=== PATIENT | female | born 1980 | race Caucasian/White ===

== ENCOUNTER → 2017-01-09 | Outpatient (CLI) | payer BC ==
[2017-01-09 11:04] LABS: CH 30.2; CHCM 34.1; HCT 39.1 % (34.0-46.0); HDW 2.53; HGB 13.4 gm/dL (11.4-16.0); MCH 30.5 pg (25.0-35.0); MCHC 34.3 g/dL (31.0-37.0); MCV 88.9 fL (80.0-100.0); Mean Platelet Volume 7.9
[2017-01-09 12:00] LABS: Hepatitis B Surface Ag Index 0.07
[2017-01-09 12:20] LABS: Hemoglobin A1C 5.5 % (4.2-6.1)
[2017-01-10 07:51] LABS: HIV-1/HIV-2 Ab Screen NONREAC (NON REAC)
[2017-01-13 05:43] LABS: Parvovirus B-19 IgG Antibodies 3.6 INDEX (<0.9); Parvovirus B-19 IgM Antibodies 0.2 INDEX (<0.9)
== END ==
LOC: LABWHC1 09:34
PROVIDERS: ATTEND Obstetrics & Gynecology
DX: Z34.90 Encounter for supervision of normal pregnancy, unspecified, unspecified trimester (principal); Z3A.00 Weeks of gestation of pregnancy not specified
CPT/HCPCS: 36415; 82950; 83036; 85027; 86747; 86762; 86780; 86850; 86900; 86901; 87086; 87340; 87389

== ENCOUNTER 2017-02-06 21:42 | Emergency (ER) | payer BC, OTHER ==
[2017-02-06 21:48] VITALS: RESP 18
--- NOTE | 2017-02-06 22:24 | ED ---
Female Urogenital HPI - General Chief complaint: Vaginal Bleeding Stated complaint: Vag bleeding-15 wk preg Time Seen by Provider: 02/06/17 22:04 Source: patient, family, RN notes reviewed, old records reviewed Mode of arrival: ambulatory Limitations: no limitations - History of Present Illness Initial comments: This is a 36-year-old female presenting to the emergency department with chief complaint of vaginal bleeding. Patient is currently 15 weeks . She reports that she saw Dr. Vigil yesterday and had heart tones and everything was fine. She states that she was doing a lot of heavy lifting today at her school was going up and down from sitting on the floor. She is a autism teacher. She reports that this is her fourth . She reports that she does have some cramping pelvic pain that comes and goes. She states that she does not have any clots passed but there was blood whenever she urinated. She states that she has no abdominal pain, nausea or vomiting. - Related Data Home Medications Medication Instructions Recorded Confirmed Cetirizine HCl [Zyrtec] 10 mg PO DAILY 02/06/17 02/06/17 Rgh-Ywla-Duume Acid 1 cap PO DAILY 02/06/17 02/06/17 [-U Capsule (formulary)] Allergies Allergy/AdvReac Type Severity Reaction Status Date / Time amoxicillin Allergy Rash/Hives Verified 02/06/17 22:35 cephalexin [From Keflex] Allergy Rash/Hives Verified 02/06/17 22:35 erythromycin base Allergy Rash/Hives Verified 02/06/17 22:35 insulin lispro [From Humalog] Allergy Rash/Hives Verified 02/06/17 22:35 levofloxacin [From Levaquin] Allergy Rash/Hives Verified 02/06/17 22:35 terbinafine [From Lamisil] Allergy Rash/Hives Verified 02/06/17 22:35 Review of Systems ROS Statement: Those systems with pertinent positive or pertinent negative responses have been documented in the HPI. ROS Other: All systems not noted in ROS Statement are negative. Past Medical History Past Medical History: No Reported History History of Any Multi-Drug Resistant Organisms: None Reported Past Surgical History: Cholecystectomy, Orthopedic Surgery Past Psychological History: No Psychological Hx Reported Smoking Status: Never smoker Past Alcohol Use History: None Reported Past Drug Use History: None Reported General Exam - General Exam Comments Initial Comments: This is a 36-year-old female presenting to emergency Department chief complaint of vaginal bleeding. Patient does not appear to be in any acute distress. Limitations: no limitations General appearance: alert, in no apparent distress Head exam: Present: atraumatic, normocephalic, normal inspection Eye exam: Present: normal appearance, PERRL, EOMI. Absent: scleral icterus, conjunctival injection, periorbital swelling ENT exam: Present: normal exam, mucous membranes moist Neck exam: Present: normal inspection. Absent: tenderness, meningismus, lymphadenopathy Respiratory exam: Present: normal lung sounds bilaterally. Absent: respiratory distress, wheezes, rales, rhonchi, stridor Cardiovascular Exam: Present: regular rate, normal rhythm, normal heart sounds. Absent: systolic murmur, diastolic murmur, rubs, gallop, clicks GI/Abdominal exam: Present: soft, normal bowel sounds. Absent: distended, tenderness, guarding, rebound, rigid External exam: Present: normal external exam Speculum exam: Present: cervical discharge, vaginal bleeding, other (Cervix appears to be somewhat dilated between 1 and 2 cm.). Absent: normal speculum exam Extremities exam: Present: normal inspection, full ROM, normal capillary refill. Absent: tenderness, pedal edema, joint swelling, calf tenderness Back exam: Present: normal inspection Neurological exam: Present: alert, oriented X3, CN II-XII intact Psychiatric exam: Present: normal affect, normal mood Skin exam: Present: warm, dry, intact, normal color. Absent: rash Course Vital Signs 02/06/17 02/07/17 21:43 00:55 Temperature 97.7 F 98.6 F Pulse Rate 82 83 Respiratory 18 18 Rate Blood Pressure 137/67 117/64 O2 Sat by Pulse 100 97 Oximetry Medical Decision Making - Medical Decision Making This is a 36-year-old female presents emergency Department with chief complaint of vaginal bleeding for one day. Patient reports is her fourth . She does follow up with Dr. Davila. She was that she is approximately 15-16 weeks. Patient received blood work recently, blood type is A positive. Patient Hcg serum quant is 46,000. Patient given transvaginal ultrasound. Ultrasound shows single IUP measuring 16 weeks. Cervix measures 3.5 cm which is closed. On pelvic exam there was a significant amount of dark blood. No evidence of clotting. The cervix appeared to be somewhat open between 1-2 cm. Difficult to totally visualize the cervix at this time blood. Discussed the findings with the patient. Discussed that this could likely be in and an inevitable miscarriage. Discussed close follow-up with Dr. Vigil and Giovanni. Discussed the case with Dr. Sanford. He states there is nothing more that we could do to intervene at this point. Patient will repeat her blood work in 2 days. Patient was advised to be at bedrest and to return if there are any worsening signs or symptoms. Patient agrees with treatment plan will comply. Return parameters were discussed. - Lab Data Result diagrams: 02/06/17 22:30 02/06/17 22:30 Lab Results 02/06/17 02/06/17 02/06/17 Range/Units 22:30 22:30 22:30 WBC 9.7 (3.8-10.6) k/uL RBC 4.06 (3.80-5.40) m/uL Hgb 12.1 (11.4-16.0) gm/dL Hct 35.6 (34.0-46.0) % MCV 87.7 (80.0-100.0) fL MCH 29.9 (25.0-35.0) pg MCHC 34.0 (31.0-37.0) g/dL RDW 13.7 (11.5-15.5) % Plt Count 152 (150-450) k/uL Neutrophils % 69 % Lymphocytes % 22 % Monocytes % 5 % Eosinophils % 1 % Basophils % 0 % Neutrophils # 6.7 (1.3-7.7) k/uL Lymphocytes # 2.2 (1.0-4.8) k/uL Monocytes # 0.5 (0-1.0) k/uL Eosinophils # 0.1 (0-0.7) k/uL Basophils # 0.0 (0-0.2) k/uL Sodium 136 L (137-145) mmol/L Potassium 3.3 L (3.5-5.1) mmol/L Chloride 105 (98-107) mmol/L Carbon Dioxide 22 (22-30) mmol/L Anion Gap 9 mmol/L BUN 7 (7-17) mg/dL Creatinine 0.46 L (0.52-1.04) mg/dL Est GFR (MDRD) Af Amer >60 (>60 ml/min/1.73 sqM) Est GFR (MDRD) Non-Af >60 (>60 ml/min/1.73 sqM) Glucose 113 H (74-99) mg/dL Calcium 9.5 (8.4-10.2) mg/dL HCG, Qual Detected HCG, Quant 25394.3 mIU/mL - Radiology Data Radiology results: report reviewed Single IUP of 16 weeks and 1 day. Posterior marginal placenta. Focal myometrial contraction cervix seen on initial imaging. Cervix measures 3.5 cm in length and is closed. IP hurrying of 136 bpm. Disposition Clinical Impression: Threatened miscarriage Disposition: HOME SELF-CARE Condition: Good Instructions: Threatened Miscarriage (ED) Additional Instructions: Patient advised to follow up with your [facility] on Thursday. Patient needs to rest. Patient needs to repeat her lab work in 2 days. Return to the emergency department if any alarming signs or symptoms occur. Referrals: Carmita Monge MD [Primary Care Provider] - 1-2 days Time of Disposition: 00:41
[2017-02-06 22:35] LABS: Basophils % (A) 0 %; CH 30.6; CHCM 35.1; Eosinophils # (A) 0.1 k/uL (0-0.7); Eosinophils % (A) 1 %; HCT 35.6 % (34.0-46.0); HDW 2.66; HGB 12.1 gm/dL (11.4-16.0); Luc # (Auto) 0.17; Luc % (Auto) 2; Lymphocytes # (A) 2.2 k/uL (1.0-4.8); Lymphocytes % (A) 22 %; MCH 29.9 pg (25.0-35.0); MCV 87.7 fL (80.0-100.0); Mean Platelet Volume 8.9; Monocytes # (A) 0.5 k/uL (0-1.0); Monocytes % (A) 5 %; Neutrophils # (A) 6.7 k/uL (1.3-7.7); Neutrophils % (A) 69 %; RBC 4.06 m/uL (3.80-5.40); RDW 13.7 % (11.5-15.5); WBC 9.7 k/uL (3.8-10.6); WBC (Perox) 9.56
[2017-02-06 22:44] LABS: HCG,Qualitative Serum Detected
[2017-02-06 22:45] LABS: Anion Gap 9 mmol/L; Blood Urea Nitrogen 7 mg/dL (7-17); Calcium 9.5 mg/dL (8.4-10.2); Carbon Dioxide 22 mmol/L (22-30); Chloride 105 mmol/L (98-107); Glucose 113 mg/dL (74-99); Non-African American GFR(MDRD) >60 (>60 ml/min/1.73 sqM); Potassium 3.3 mmol/L (3.5-5.1); Sodium 136 mmol/L (137-145)
--- NOTE | 2017-02-06 23:25 | US ---
EXAM: US After First Trimester, Transabdominal CLINICAL HISTORY: Reason: Pain TECHNIQUE: Real-time transabdominal obstetrical ultrasound of the maternal pelvis and a second or third trimester with image documentation. COMPARISON: No relevant prior studies available. FINDINGS: Fetus: Taver[place]. Heart rate: 136 bpm Presentation: Variable lie. Placenta: Posterior and marginal. No abruption. Amniotic fluid: RED 13.3 cm Anatomy: Intracranial/face anatomy not seen. Spinal anatomy not seen. Abdominal anatomy not seen. Extremities not seen. Four-chamber heart not seen. Umbilical cord not seen. BIOMETRICS Gestational age by US: 16 weeks 1 day. EFW: 138 grams BPD: 3.2 cm corresponding to 16 weeks / 1 days HC: 11.9 cm corresponding to 16 weeks / 0 days AC: 10.0 cm corresponding to 16 weeks / 0 days FL: 1.9 cm corresponding to 15 weeks / 5 days MATERNAL: Uterus: Focal myometrial contraction near the cervix seen on initial imaging. No myometrial mass. Cervix: 3.5 cm in length and closed. Free fluid: No free fluid. IMPRESSION: Single IUP of 16 weeks and 1 day. Posterior marginal placenta. Focal myometrial contraction near the cervix seen on initial imaging.
[2017-02-07 00:56] VITALS: BP 117/64; PULSE 83; TEMP 98.6
== END 2017-02-07 00:56 | disposition home or self-care (01) ==
LOC: EC 21:42
DX: O20.0 Threatened abortion (principal); Z3A.16 16 weeks gestation of pregnancy; Z79.899 Other long term (current) drug therapy; Z88.0 Allergy status to penicillin; Z88.1 Allergy status to other antibiotic agents; Z88.8 Allergy status to other drugs, medicaments and biological substances
CPT/HCPCS: 36415; 76805; 80048; 84702; 84703; 85025; 99284

== ENCOUNTER → 2017-04-22 | Outpatient (CLI) | payer OTHER | END | disposition home or self-care (01) | LOC: LABWHC1 07:46 | PROVIDERS: ATTEND Obstetrics & Gynecology | DX: Z34.90 Encounter for supervision of normal pregnancy, unspecified, unspecified trimester (principal); Z3A.00 Weeks of gestation of pregnancy not specified | CPT/HCPCS: 36415; 82950 ==

== ENCOUNTER 2017-07-06 16:30 | Outpatient (CLI) | payer OTHER ==
[2017-07-06 17:21] LABS: Glucose,Whole Blood 90 mg/dL (75-99)
[2017-07-06 17:25] VITALS: BP 126/78; PULSE 88; RESP 16; TEMP 98.1
--- NOTE | 2017-07-25 12:03 | P.MSEPDOC ---
Presenting Problems - Arrival Data Date of Arrival on Unit: 07/06/17 Time of Arrival on Unit: 16:30 Mode of Transport: Ambulatory - Complaint OB-Reason for Admission/Chief Complaint: Rule Out PROM Comment: clear fluid, leaking since 07/05/2017 Medical History - Information : 4 Para: 3 Term: 2 : 1 Abortions: Spontaneous or Elective: 0 Number of Living Children: 3 - Gestational Age Gestational Age by BLAKE (wks/days): 36 Weeks and 5 Days - History Complications: GDM Comment: GDM; insulin controlled; cbg 90 in triage Review of Systems - Review of Systems Constitutional: No problems Breast: No problems ENT: No problems Cardiovascular: No problems Respiratory: No problems Gastrointestinal: No problems Genitourinary: No problems Musculoskeletal: No problems Neurological: No problems Skin: No problems Vital Signs - Temperature Temperature: 98.1 F Temperature Source: Temporal Artery Scan - Pulse Right Sitting Brachial Pulse Rate: 88 Pulse Assessment Method: Automatic Cuff - Respirations Respiratory Rate: 16 Oxygen Delivery Method: Room Air O2 Sat by Pulse Oximetry: 100 - Blood Pressure Right Arm Sitting Blood Pressure: 126/78 Blood Pressure Mean: 94 Blood Pressure Source: Automatic Cuff Medical Screen Scoring (Pre) - Cervical Exam Dilation: 1-3 cm = 1 Effacement: More than 50% = 2 Membranes: Intact - Uterine Contractions Frequency: N/A Duration: N/A Intensity: N/A - Maternal Vital Signs Maternal Temperature: N/A Maternal Blood Pressure: N/A Signs of Preeclampsia: N/A Maternal Respirations: N/A - Maternal Trauma Maternal Trauma: N/A - Assessment Baseline FHR: 130 Heart Rate - NICHD Category: Category I (Normal) = 0 NST: Reactive Position: N/A Station: N/A - Total Score Total Score (Pre): 3 - Level of Risk Level of Risk: Low (0-5) Physician Notification (Pre) - Physician Notified Physician Notified Date: 07/06/17 Physician Notified Time: 17:15 Physician/Practitioner Notifed:: Ephraim Spoke With: Ephraim New Order Received: Yes - Notification Comment Comment: Negative amnisure; D/C home c\instructions; follow up at appt Thursday Disposition - Disposition OB Disposition: Discharge to home Discharge Date: 07/06/17 Discharge Time: 17:25 I agree with the RN Medical Screening Exam: Yes Risk & Benefit of care provided described in d/c instruction: Yes Diagnosis: FULL-TERM ANTHONY ROM, ONSET LABOR WITHIN 24 HOURS OF RUPTURE
== END 2017-07-06 17:25 | disposition home or self-care (01) ==
LOC: FBPOP 16:30
PROVIDERS: ATTEND Obstetrics & Gynecology Obstetrics
DX: O42.10 Premature rupture of membranes, onset of labor more than 24 hours following rupture, unspecified weeks of gestation (principal); Z3A.36 36 weeks gestation of pregnancy
CPT/HCPCS: 59025; 99213

== ENCOUNTER 2018-09-18 11:30 | Emergency (ER) | payer OTHER ==
[2018-09-18 11:37] VITALS: RESP 24; TEMP 97.6
--- NOTE | 2018-09-18 11:56 | ED ---
General Adult HPI - General Chief complaint: Anxiety Stated complaint: Anxiety, Depression Time Seen by Provider: 09/18/18 11:41 Source: patient, RN notes reviewed, old records reviewed Mode of arrival: ambulatory Limitations: no limitations - History of Present Illness Initial comments: 38-year-old female presents for evaluation of anxiety, depression, hopelessness. Patient admits to near the daily alcohol consumption. She has been dealing with symptoms for the past several months. She is not on any medicine currently. Patient denies suicide attempt, denies suicidal ideation although she does feel like she "wants a break". Patient denies significant medical history. No mental health history. - Related Data Home Medications Medication Instructions Recorded Confirmed Fluticasone Nasal [place] [Flonase 1 spr EA NOSTRIL DAILY PRN 09/18/18 09/18/18 Nasal [place]] Ibuprofen [Motrin Ib] 400 mg PO Q6H PRN 09/18/18 09/18/18 Nasal [place] Otc 2 spr EA NOSTRIL DAILY PRN 09/18/18 09/18/18 Previous Rx's Medication Instructions Recorded Diazepam [Valium] 5 mg PO TID PRN 3 Days #9 tab 09/18/18 Allergies Allergy/AdvReac Type Severity Reaction Status Date / Time amoxicillin Allergy Rash/Hives Verified 09/18/18 12:00 cephalexin [From Keflex] Allergy Rash/Hives Verified 09/18/18 12:00 erythromycin base Allergy Rash/Hives Verified 09/18/18 12:00 insulin lispro [From Humalog] Allergy Rash/Hives Verified 09/18/18 12:00 levofloxacin [From Levaquin] Allergy Rash/Hives Verified 09/18/18 12:00 terbinafine [From Lamisil] Allergy Rash/Hives Verified 09/18/18 12:00 Review of Systems ROS Statement: Those systems with pertinent positive or pertinent negative responses have been documented in the HPI. ROS Other: All systems not noted in ROS Statement are negative. Past Medical History Past Medical History: No Reported History, Asthma History of Any Multi-Drug Resistant Organisms: None Reported Past Surgical History: Cholecystectomy, Orthopedic Surgery Past Anesthesia/Blood Transfusion Reactions: No Reported Reaction Past Psychological History: Anxiety, Depression Smoking Status: Current every day smoker Past Alcohol Use History: Daily Past Drug Use History: None Reported - Past Family History Father Family Medical History: No Reported History General Exam Limitations: no limitations General appearance: alert, in no apparent distress, anxious Head exam: Present: atraumatic, normocephalic Eye exam: Present: normal appearance. Absent: PERRL, EOMI ENT exam: Present: normal exam Neck exam: Present: normal inspection. Absent: tenderness, meningismus Respiratory exam: Present: normal lung sounds bilaterally. Absent: respiratory distress, wheezes Cardiovascular Exam: Present: normal rhythm, tachycardia GI/Abdominal exam: Present: soft. Absent: distended, tenderness, guarding Extremities exam: Present: normal inspection, normal capillary refill. Absent: pedal edema Neurological exam: Present: alert, oriented X3, CN II-XII intact. Absent: motor sensory deficit Psychiatric exam: Present: depressed, anxious. Absent: suicidal ideation Skin exam: Present: warm, dry, intact. Absent: cyanosis, diaphoretic Course Vital Signs 09/18/18 11:33 Temperature 97.6 F Pulse Rate 132 H Respiratory 24 Rate Blood Pressure 166/107 O2 Sat by Pulse 98 Oximetry - Reevaluation(s) Reevaluation #1: 09/18/18 17:03 Patient's care signed out to Dr. Friedman at shift change. Medical Decision Making - Medical Decision Making 38-year-old female presenting for anxiety, depression, and alcohol abuse. Patient is medically cleared emergency department, she was evaluated for mental health. She is cleared by EPS for outpatient follow-up. She is given counseling and outpatient referral. Patient is concerned she may have withdrawal symptoms that she has been drinking daily. She is given a short course of Valium for concern of alcohol withdrawal. She will be discharged home. - Lab Data Lab Results 09/18/18 Range/Units 13:02 Urine Opiates Screen Not Detected (NotDetected) Ur Oxycodone Screen Not Detected (NotDetected) Urine Methadone Screen Not Detected (NotDetected) Ur Propoxyphene Screen Not Detected (NotDetected) Ur Barbiturates Screen Not Detected (NotDetected) U Tricyclic Antidepress Not Detected (NotDetected) Ur Phencyclidine Scrn Not Detected (NotDetected) Ur Amphetamines Screen Not Detected (NotDetected) U Methamphetamines Scrn Not Detected (NotDetected) U Benzodiazepines Scrn Not Detected (NotDetected) Urine Cocaine Screen Not Detected (NotDetected) U Marijuana (THC) Screen Not Detected (NotDetected) Disposition Clinical Impression: Acute anxiety, Depression Disposition: HOME SELF-CARE Instructions: Anxiety (ED), Abuse of Alcohol (ED) Prescriptions: Diazepam [Valium] 5 mg PO TID PRN 3 Days #9 tab PRN Reason: Anxiety Is patient prescribed a controlled substance at d/c from ED?: No Referrals: Didier Estevez MD [Primary Care Provider] - 1-2 days Time of Disposition: 17:26
[2018-09-18 13:30] LABS: Amphetamine Screen,Urine Not Detected (NotDetected); Barbiturate Screen,Urine Not Detected (NotDetected); Benzodiazepines Screen,Urine Not Detected (NotDetected); Cocaine Screen,Urine Not Detected (NotDetected); Methadone Screen, Urine Not Detected (NotDetected); Opiate Screen,Urine Not Detected (NotDetected); Oxycodone Screen, Urine Not Detected (NotDetected); Phencyclidine Screen,Urine Not Detected (NotDetected); Tricyclic Antidepressant,Urine Not Detected (NotDetected); Urn Cannabinoid Scrn Not Detected (NotDetected)
[2018-09-18 18:00] VITALS: BP 150/94; PULSE 97
== END 2018-09-18 17:58 | disposition home or self-care (01) ==
LOC: EC 11:30
DX: F41.9 Anxiety disorder, unspecified (principal); F32.9 Major depressive disorder, single episode, unspecified; F10.10 Alcohol abuse, uncomplicated; F17.200 Nicotine dependence, unspecified, uncomplicated; Z88.0 Allergy status to penicillin; Z88.1 Allergy status to other antibiotic agents; Z88.8 Allergy status to other drugs, medicaments and biological substances
CPT/HCPCS: 80306; 82075; 99284

== ENCOUNTER → 2019-05-04 | Outpatient (CLI) | payer BC ==
--- NOTE | 2019-05-04 11:18 | MM ---
Reason for exam: screening (asymptomatic). Baseline mammogram. History: Family history of breast cancer in maternal grandmother at age 86 and breast cancer in maternal aunt at age 40. Physical Findings: Nurse did not find any significant physical abnormalities on exam. MG 3D Screening Mammo W/Cad Bilateral CC and MLO view(s) were taken. The breast tissue is heterogeneously dense. This may lower the sensitivity of mammography. No suspicious abnormality. These results were verbally communicated with the patient and result sheet given to the patient on 05/04/19. ASSESSMENT: Negative, BI-RAD 1 RECOMMENDATION: Routine screening mammogram of both breasts in 1 year.
== END | disposition home or self-care (01) ==
LOC: RADMAMWWP 10:15
PROVIDERS: ATTEND Obstetrics & Gynecology
DX: Z12.31 Encounter for screening mammogram for malignant neoplasm of breast (principal); Z80.3 Family history of malignant neoplasm of breast
CPT/HCPCS: 77063; 77067

== ENCOUNTER → 2019-10-14 | Outpatient (CLI) | payer BC ==
[2019-10-19 12:39] LABS: Beef IgG 8.8 mcg/mL (< 2.0)
[2019-10-19 12:40] LABS: Chicken Meat IgG 2.8 mcg/mL (< 2.0)
[2019-10-21 12:08] LABS: Corn IgG 5.7 mcg/mL (< 2.0); Cow's Milk IgG 39.8 mcg/mL (< 2.0); Peanut IgG <2.0 mcg/mL (< 2.0); Potato IgG 2.7 mcg/mL (< 2.0); Soybean IgG 2.1 mcg/mL (< 2.0); Tomato IgG 2.8 mcg/mL (< 2.0); Wheat IgG 7.1 mcg/mL (< 2.0)
== END | disposition home or self-care (01) ==
LOC: LABWHC1 09:54
PROVIDERS: ATTEND Otolaryngology
DX: J30.89 Other allergic rhinitis (principal)
CPT/HCPCS: 36415; 86001

== ENCOUNTER → 2021-04-09 | Outpatient (CLI) | payer BC ==
[2021-04-09 12:13] LABS: African American GFR (CKD) >90 (>60 ml/min/1.73 sqM); Anion Gap 8 mmol/L; Blood Urea Nitrogen 15 mg/dL (7-17); Carbon Dioxide 23 mmol/L (22-30); Chloride 107 mmol/L (98-107); Glucose 96 mg/dL (74-99); Magnesium 2.1 mg/dL (1.6-2.3); Non-African American GFR(CKD) >90 (>60 ml/min/1.73 sqM); Potassium 4.1 mmol/L (3.5-5.1); Sodium 138 mmol/L (137-145)
[2021-04-09 12:17] LABS: Basophils % (A) 0 %; Eosinophils # (A) 0.2 k/uL (0-0.7); Eosinophils % (A) 2 %; HCT 38.7 % (34.0-46.0); HGB 13.3 gm/dL (11.4-16.0); Lymphocytes # (A) 2.4 k/uL (1.0-4.8); Lymphocytes % (A) 28 %; MCHC 34.2 g/dL (31.0-37.0); MCV 87.6 fL (80.0-100.0); Monocytes # (A) 0.5 k/uL (0-1.0); Monocytes % (A) 6 %; Neutrophils # (A) 5.4 k/uL (1.3-7.7); Neutrophils % (A) 63 %; Platelet Count 167 k/uL (150-450); RBC 4.42 m/uL (3.80-5.40); RDW 14.4 % (11.5-15.5); WBC 8.6 k/uL (3.8-10.6)
== END | disposition home or self-care (01) ==
LOC: LABPAT 11:14
PROVIDERS: ATTEND Obstetrics & Gynecology
DX: Z01.812 Encounter for preprocedural laboratory examination (principal); N81.4 Uterovaginal prolapse, unspecified; N81.6 Rectocele
CPT/HCPCS: 36415; 80051; 82565; 82947; 83735; 84520; 85025; 87086

== ENCOUNTER 2021-04-18 05:47 | Day surgery (SDC) | payer BC, OTHER ==
--- NOTE | 2021-04-11 18:05 | P.GSHP ---
History of Present Illness H&P Date: 04/11/21 Chief Complaint: Mixed urinary incontinence The patient is a 41-year-old white female with mixed urinary incontinence, which requires the locational use of pads. She has scheduled to undergo a TVH with AP repair for pelvic prolapse. She has been advised that the stress component of her incontinence may worsen following this procedure. Examination shows evidence of urethral hypermobility, and she will undergo a TOT sling at the time of her TVH with AP repair. - Genitourinary (Female) Genitourinary: Reports as per HPI Past Medical History Past Medical History: No Reported History, Asthma History of Any Multi-Drug Resistant Organisms: None Reported Past Surgical History: Cholecystectomy, Orthopedic Surgery Past Anesthesia/Blood Transfusion Reactions: No Reported Reaction Past Psychological History: Anxiety, Depression Past Alcohol Use History: Daily Past Drug Use History: None Reported - Past Family History Father Family Medical History: No Reported History Medications and Allergies Home Medications Medication Instructions Recorded Confirmed Type Diazepam [Valium] 5 mg PO TID PRN 3 Days #9 tab 09/18/18 Rx Fluticasone Nasal [place] [Flonase 1 spr EA NOSTRIL DAILY PRN 09/18/18 09/18/18 History Nasal [place]] Ibuprofen [Motrin Ib] 400 mg PO Q6H PRN 09/18/18 09/18/18 History Nasal [place] Otc 2 spr EA NOSTRIL DAILY PRN 09/18/18 09/18/18 History Allergies Allergy/AdvReac Type Severity Reaction Status Date / Time amoxicillin Allergy Rash/Hives Verified 09/18/18 12:00 cephalexin [From Keflex] Allergy Rash/Hives Verified 09/18/18 12:00 erythromycin base Allergy Rash/Hives Verified 09/18/18 12:00 insulin lispro [From Humalog] Allergy Rash/Hives Verified 09/18/18 12:00 levofloxacin [From Levaquin] Allergy Rash/Hives Verified 09/18/18 12:00 terbinafine [From Lamisil] Allergy Rash/Hives Verified 09/18/18 12:00 Surgical - Exam - General well developed, well nourished, no distress - Neck no masses, trachea midline - Abdomen Abdomen: soft, non tender, no guarding, no rigid, no rebound - Genitourinary Normal vulva, normal urethral meatus. There is evidence of urethral hypermobility. Stress incontinence is not demonstrated. Grade 3 cystocele, grade 2 rectocele. - Psychiatric oriented to time, oriented to person, oriented to place, speech is normal, memory intact Assessment and Plan (1) Mixed urinary incontinence due to female genital prolapse Status: Acute Code(s): N39.46 - MIXED INCONTINENCE; N81.9 - FEMALE GENITAL PROLAPSE, UNSPECIFIED SNOMED Code(s): 880844334 Plan: I had a lengthy discussion with the patient regarding her urinary incontinence. I explained to her that the incontinence may worsen following a TVH with AP repair. Alternative surgical treatment options were reviewed in detail. These include autologous fascial sling, suprapubic synthetic sling, and TOT synthetic sling. The pros, cons, and risks of each approach were reviewed. The controversy regarding the use of synthetic slings was discussed in detail. She will undergo placement of an Obtryx sling at the time of her TVH with AP repair. She understands risks associated with this to include anesthesia, bleeding, infection, lower urinary tract injury, persistent incontinence, increased urge incontinence, and urinary retention which may require a secondary procedure.
[2021-04-12 10:17] VITALS: BMI 28.3
--- NOTE | 2021-04-15 17:02 | HP ---
HISTORY AND PHYSICAL REASON FOR ADMISSION: Surgery on March. HISTORY OF PRESENT ILLNESS: This is a 41-year-old female who presents for vaginal hysterectomy. Her most recent Pap smear revealed high-grade squamous intraepithelial lesion, confirmed on colposcopic biopsies. The patient had a tubal ligation. She complains of an increasing perineal bulge and prolapse of the perineal body. In addition, she has urinary leakage with almost all daily activities, having to splint the perineum for complete evacuation of the rectum as well. The patient has pain with deep penetration at the time of intimacy and feels that tampons actually bend or become misshapen and spin in the vagina. She is scheduled for vaginal hysterectomy under my care, with comanagement with Dr. Chamorro. PAST MEDICAL HISTORY: Significant for allergy induced asthma, history of gestational diabetes, history of abnormal Pap smears in the past. PAST SURGICAL HISTORY: Cholecystectomy, colposcopy, foot surgery on the right foot in 1993 in 1994, tubal occlusion with [place] clips, and wisdom teeth extracted. CURRENT MEDICATIONS: Multivitamin daily, vitamin D 5000 international units daily, Zyrtec-D p.r.n. ALLERGIES: Include AMOXICILLIN, ERYTHROMYCIN, HUMALOG, KEFLEX, LAMISIL, LEVAQUIN to all of which patient reports hives. She also discusses seasonal allergies. FAMILY HISTORY: Significant for senile dementia, heart disease, insulin-dependent diabetes, breast cancer. REPRODUCTIVE HISTORY: Significant for normal spontaneous vaginal delivery in 2005, 2008, 2013, and 2017. All healthy newborns. SOCIAL HISTORY: The patient works for the [employer] as a teacher, she has had intermittent tobacco smoking in the past, quitting with pregnancies. She is , denies alcohol or drug use. REVIEW OF SYSTEMS: Otherwise negative. PHYSICAL EXAMINATION: On examination, patient is 5 foot 2-1/2 inches, 157 pounds, blood pressure 128/90 seated. HEENT exam reveals no thyromegaly, no cervical lymphadenopathy. CHEST: Clear to auscultation in all stoner anteriorly and posteriorly. BREAST exam reveals breasts to be bilaterally symmetric to inspection with no skin dimpling, nipple discharge, axillary adenopathy. ABDOMEN: Soft and nontender, no organosplenomegaly, no CVA tenderness. EXTREMITIES reveal no edema. On PELVIC EXAM, there is a grade 2-3 cystocele, grade 2-3 rectocele, and grade 2-3 uterine prolapse. Adnexa are negative to palpation bilaterally. There is good sphincter tone, FIT negative stool. No rash is present on the skin exam, no areas of discoloration. NEUROLOGIC: The patient is oriented and intact, with good judgment. Normal mood and appropriate affect. IMPRESSION: Increasingly symptomatic cystocele, rectocele, uterine prolapse. Dr. Chamorro' assessment is of mixed urinary incontinence. PLAN: We will proceed with vaginal hysterectomy, anterior and posterior colporrhaphy. Dr. Chamorro will perform a sling procedure at the same time. Cystoscopy will be done after completion of all surgery. Patient is aware of the risks, benefits, and alternatives to this plan. All questions have been answered. We have discussed the risk of bleeding, infection, perforation or damage to bowel, bladder, ureters, or indeed any pelvic or abdominal organs. She understands the unlikely but possible occurrence of dyspareunia postoperatively as well. All questions answered. MMODL / IJN: [id number] /
[~2021-04-18 05:47] MED LIST: CLINDAMYCIN 900 MG in DEXTROSE 5% IN WATER 50 ML IVPB PRN; DEXAMETHASONE SOD PHOSPHATE 4 MG/ML 1 ML VIAL IV ONE; ONDANSETRON 4 MG/2 ML VIAL IVP ONE
[2021-04-18] MEDS ORDERED: ONDANSETRON 4 MG/2 ML VIAL ONE ×2 (06:19→07:35)
[2021-04-18] MEDS ORDERED: LACTATED RINGERS 1,000 ML IV ONE ×4 (06:20→11:09)
[2021-04-18] MEDS ORDERED: HYDROmorphone 0.5 MG/0.5 ML SYRINGE IVP PRN (07:00)
[2021-04-18] MEDS ORDERED: MIDAZOLAM 2 MG/2 ML VIAL IVP ONE (07:16)
[2021-04-18] MEDS ORDERED: DEXAMETHASONE SOD PHOSPHATE 10 MG/ML 1 ML VIAL ONE (07:35)
[2021-04-18] MEDS ORDERED: MIDAZOLAM 2 MG/2 ML VIAL ONE (07:35)
[2021-04-18] MEDS ORDERED: SUCCINYLCHOLINE CHLORIDE 100 MG/5 ML SYR IV ONE (07:35)
[2021-04-18] MEDS ORDERED: PROPOFOL 10 MG/ML 20 ML VIAL IV ONE (07:35)
[2021-04-18] MEDS ORDERED: fentaNYL (PF) 50 MCG/ML 2 ML AMP ONE (07:35)
[2021-04-18] MEDS ORDERED: KETOROLAC 15 MG/ML 1 ML VIAL ONE (07:35)
[2021-04-18] MEDS ORDERED: HYDROmorphone (PF) 1 MG/ML ONE (07:35)
[2021-04-18] MEDS ORDERED: VASOPRESSIN 20 UNIT/ML 1 ML VIAL SQ ONE ×4 (08:00)
[2021-04-18] MEDS ORDERED: BACITRACIN ZINC 500 UNIT/GM OINT 28.4 GM TUBE TOPICAL ONE ×2 (08:05→08:54)
[2021-04-18] MEDS ORDERED: GENTAMICIN 80 MG in SODIUM CHLORIDE 0.9% 500 ML 500 ML IRRIGATION ONE (08:53)
[2021-04-18] MEDS ORDERED: ONDANSETRON 4 MG/2 ML VIAL IVP PRN (09:37)
[2021-04-18] MEDS ORDERED: KETOROLAC 15 MG/ML 1 ML VIAL IVP PRN (09:37)
[2021-04-18] MEDS ORDERED: SIMETHICONE 80 MG CHEWABLE PO PRN (09:37)
--- NOTE | 2021-04-18 09:37 | P.OP ---
Date of Procedure: 04/18/21 Preoperative Diagnosis: Increasingly symptomatic uterine prolapse, cystocele and rectocele, mixed urinary incontinence. Postoperative Diagnosis: Normal-appearing ovaries bilaterally. Anesthesia: DGA Surgeon: Gabby Mckeon Call Manager #1: Rebeka Ye Estimated Blood Loss (ml): 100 IV fluids (ml): 1,000 Urine output (ml): 350 Pathology: other (Cervix and uterus) Condition: stable Disposition: PACU Operative Findings: Normal-appearing ovaries bilaterally Description of Procedure: Patient is brought to the operating suite after a spinal with Duramorph is placed in the preoperative area. She is placed in the dorsal lithotomy position, the cervix, vagina, lower abdominal wall are all prepped and draped in usual sterile fashion. Urine hCG is negative. Antibiotics are given. The appropriate timeout is performed to assure proper patient and procedural identification. The bladder is drained for approximately 300 and cc of clear yellow urine. Weighted speculum was placed into the vagina. The anterior lip of the cervix is grasped with a double-tooth tenaculum. The cervix is injected circumferentially with a dilute Pitressin solution. A kluti kaah blade scalpel is used to incise the mucosa circumferentially with a V positioning at 6:00. Sponge rolled finger is used to sweep the mucosa from the underlying fascial edge. The peritoneum is entered at 6:00 with a Metzenbaum scissor, and this is suture tied with 2-0 Vicryl and held with a hemostat. The large billed speculum is then placed into the peritoneal cavity. Care is taken at all times to keep the mucosa swept well from the operative field to avoid bladder and/or ureteral injury. The right uterosacral ligament is identified, clamped cut and held with 0 Vicryl suture. Same procedure is carried out contralaterally. Uterine vasculature is identified, clamped cut and suture ligated with 0 Vicryl suture. 2 additional pedicles are taken superior to the vessels. The anterior peritoneum is entered at 12:00 with a Metzenbaum scissor. Feng clamps are used across the final pedicles and the uterus and cervix are removed. These pedicles are tied, flashed, and retied for excellent hemostasis. Bilateral ovaries and tubes are inspected and noted to be normal, left in situ per the patient's wishes. All pedicles are clean and dry. Speculum is changed to the shallow billed speculum and the 2-0 Vicryl suture placed at 6:00 is now brought around in a pursestring fashion to close the peritoneum. The uterosacral cardinal ligaments that were held, are now brought across contralaterally to incorporate the opposite ligament and vaginal mucosa. 2 additional uovseg-fk-lyxjy sutures are used in the vaginal mucosa to close. Attention is now drawn to the rectocele. A triangular portion of tissue is removed from the perineal body. Metzenbaum scissors are used in the midline after injecting the posterior vaginal mucosa with the same dilute Pitressin solution. The mucosa is incised, held with Allis clamps. A sponge rolled finger is used to separate the mucosa from the underlying fascial plane. 2-0 Vicryl sutures used in an interrupted fashion to bring the fascial edges together thereby completely reducing the very redundant rectocele. Metzenbaum scissors are used to trim the mucosa. 2-0 Vicryl is used in a running locking stitch to close the defect with episiotomy-like closure to finish the repair. The anterior most mucosal edges now re-identified and grasped with Allis clamps. The anterior vaginal mucosa is injected with the same dilute Pitressin solution. The mucosa is opened in the midline to appro ximately 2 cm inferior to the urethra. Sponge rolled finger is used to separate the mucosa from the underlying fascial edge. 2-0 Vicryl suture is used to bring the edges together thereby completely reducing the cystocele. Roca catheter is placed and urine is clear. Dr. Hatch now sits to complete his portion of the procedure. Total estimated blood loss 100 mL, fluid replacement 1000 mL, urine 350 mL, clear. At the end of my procedure patient is in stable condition with a blood pressure 100/60, pulse 83. Please see Dr. Hatch is separate dictation for final closure of the vaginal cough. Rectal examination is performed and the rectal mucosa is intact with no foreign bodies or stitch material identified.
[2021-04-18] MEDS ORDERED: LIDOCAINE 1%-EPI 1:100,000 20 ML VIAL SQ ONE (09:53)
--- NOTE | 2021-04-18 10:15 | P.OP ---
Date of Procedure: 04/18/21 Preoperative Diagnosis: Mixed urinary incontinence Postoperative Diagnosis: Same Procedure(s) Performed: Obtryx subfascial sling Anesthesia: CYDNEY Surgeon: Samuel Chamorro Dairy Quality Assurance Officer #1: Gabby Mckeon Estimated Blood Loss (ml): 10 IV fluids (ml): 500 Pathology: none sent Condition: stable Disposition: PACU Indications for Procedure: The patient is a 41-year-old white female with mixed urinary incontinence, which requires the locational use of pads. She has scheduled to undergo a TVH with AP repair for pelvic prolapse. She has been advised that the stress component of her incontinence may worsen following this procedure. Examination shows evidence of urethral hypermobility, and she will undergo a TOT sling at the time of her TVH with AP repair. Operative Findings: Successful placement of TOT sling. No evidence of bladder injury. Description of Procedure: I entered the operating room after Dr. Davila completed the TVH and posterior repair. The anterior repair had mostly been performed as well. The patient was positioned in the dorsal lithotomy position, with her legs supported in Chevy stirrups. Her condition was stable. A Roca catheter was in place. The scalpel was used to make bilateral groin incisions at the level of the clitoris. Subcutaneous tissues were spread with a hemostat. Each of the helical needles were passed through the respective groin incision, and turned such that the needle tip wrapped around the pubis. The needle tips were guided digitally into the vaginal incision. The Obtryx graft, which had been previously soaked in antibiotic solution, was secured to the needle tips in the standard fashion. The needles were then withdrawn, and the position of the graft was adjusted such that it overlie the mid urethra, as desired. With a hemostat placed between the graft and the urethra to prevent tension of the graft over the urethra, the plastic sheath was removed from the ends of the graft. The ends of the graft were cut beneath the skin incisions, and these incisions were closed using 4-0 Vicryl suture in a subcuticular fashion. Hemostasis within the vaginal incision was adequate, and the vaginal incision was closed using 2-0 Vicryl suture in a running fashion. Cystoscopy was performed. The 30 lens was used to introduce the 19-Wallisian Storz cystoscopic sheath through the urethra and into the bladder under direct vision. The urethra and bladder were unremarkable. There was no evidence of perforation. Both ureteral orifices were of normal anatomic location and configuration, and clear urine effluxed from both. No tumors or foreign bodies were seen. The cystoscope was removed, and the Roca catheter was replaced into the bladder. Vaginal packing was placed. All sponge and needle counts were cor rect. The patient tolerated the procedure well was taken to the recovery room in stable condition.
[2021-04-18 10:19] VITALS: RESP 16
[2021-04-18] MEDS: diphenhydrAMINE 50 MG/ML 1 ML VIAL IVP PRN (10:20)
--- NOTE | 2021-04-18 11:17 | P.ANPRN ---
Procedure Note - Anesthesia - Epidural/Spinal Spinal Time Out Performed: Yes Date of Procedure: 04/18/21 Procedure Start Time: 07:15 Procedure Stop Time: 07:25 Location of Patient: PreOp Indication: Acute Post-Operative Pain, Requested by Surgeon Sedation Type: Sedate with meaningful contact maintained Preparation: Sterile Prep Number of Attempts: 1 Position: Sitting Catheter: None Needle Guage: 25 Injectate: Other Blood Aspirated: No Pain Paresthesia on Injection Noted: No Events: Uneventful and Well Tolerated (0.4cc duramorph injecting into intrathecal space. No complications. Requested by Dr. Mckeon)
[2021-04-18] MEDS: LACTATED RINGERS 1,000 ML IV SCH ×2 (13:00→20:07)
[2021-04-18] MEDS: CLINDAMYCIN 600 MG in DEXTROSE 5% IN WATER 50 ML IVPB SCH ×4 (16:24→23:59)
[2021-04-18] MEDS: IBUPROFEN 600 MG TAB PO PRN (21:48)
[2021-04-19] MEDS: diphenhydrAMINE 50 MG/ML 1 ML VIAL IVP PRN (00:02)
[2021-04-19] MEDS: LACTATED RINGERS 1,000 ML IV SCH (06:02)
[2021-04-19] MEDS: CLINDAMYCIN 600 MG in DEXTROSE 5% IN WATER 50 ML IVPB SCH ×2 (08:06)
[2021-04-19] MEDS: IBUPROFEN 600 MG TAB PO PRN ×2 (08:06→13:58)
[2021-04-19 08:50] VITALS: BP 109/66; TEMP 98.1
--- NOTE | 2021-04-19 09:18 | P.PN ---
Progress Note - Text 04/19/21 651am 41-year-old female status post vaginal hysterectomy by Dr. Mckeon. Patient received spinal Duramorph for postop pain control, patient seen and evaluated this morning for pain control, patient has a VAS of 1 with no complaints of nausea vomiting. Patient did have complains of pruritus which should resolve by the end of the day
--- NOTE | 2021-04-19 09:24 | P.DS ---
Providers Date of admission: 04/18/21 Expected date of discharge: 04/19/21 Attending physician: Gabby Mckeon Primary care physician: [facility] Hospital Course: This is a 41-year-old female who presented with increasingly symptomatic mixed urinary incontinence, uterine prolapse, cystocele and rectocele. After thorough consultation, the decision was made to proceed with vaginal hysterectomy, anterior and posterior colporrhaphy's, and sling procedure with Dr. Chamorro. Patient is healthy, please see admitting history and physical for details. Yesterday patient underwent a vaginal hysterectomy, anterior and posterior colporrhaphy's, and sling procedure. Ovaries appeared normal and inspection and therefore were left in situ per her wishes. Surgery was unremarkable, cystoscopy negative, estimated blood loss 100 mL's. Vagina was packed with iodoform gauze and Roca catheter placed. Please see separately dictated operative note for details on these 2 procedures. This morning the patient is doing well. The vaginal packing has been removed. Roca catheter is removed. Vital signs are stable and she has remained afebrile. Abdomen is soft and nontender, active bowel sounds. She is passing flatus. There is no CVA tenderness. There is only scant vaginal bleeding noted on the sweta-pad. We are awaiting spontaneous void. Patient is otherwise doing very well, is pain-free, and is requesting discharge home. We will await spontaneous void and measure postvoid residual. If residuals less than 100 mL, patient will be discharged home later today. She will follow-up with me in the office in 2 weeks. I have reminded her to void frequently through the day, not to let the bladder become overly distended. Clean pad. Call with any fevers shakes or chills, foul smelling or bloody vaginal drainage, any back pain, difficulties urinating, nausea vomiting, or indeed with any complaints. She will use ibuprofen [id number] as needed for pain, 600 mg every 6 hours, alternating with Tylenol as needed. No intercourse, tampons or douching. No heavy lifting. No swimming. Follow-up with me in 2 weeks or as needed. Pathology report on the uterine specimen at this time is pending. Assessment: Doing well postoperative day #1 Patient Condition at Discharge: Good Plan - Discharge Summary Discharge Rx Participant: No New Discharge Prescriptions: No Action Fluticasone Nasal Alvord [Flonase Nasal Alvord] 1 spr EA NOSTRIL DAILY PRN PRN Reason: Congestion Ibuprofen [Motrin Ib] 400 mg PO Q6H PRN PRN Reason: Pain Acetaminophen [Tylenol Extra Strength] 1,000 mg PO DIRECTED PRN PRN Reason: Pain Omeprazole [PriLOSEC] 20 mg PO DAILY PRN PRN Reason: Heartburn Cetirizine HCl [Zyrtec] 10 mg PO DAILY PRN PRN Reason: allergies Discharge Medication List Fluticasone Nasal Alvord [Flonase Nasal Alvord] 1 spr EA NOSTRIL DAILY PRN [History] Ibuprofen [Motrin Ib] 400 mg PO Q6H PRN 09/18/18 [History] Acetaminophen [Tylenol Extra Strength] 1,000 mg PO DIRECTED PRN 04/12/21 [History] Cetirizine HCl [Zyrtec] 10 mg PO DAILY PRN 04/12/21 [History] Omeprazole [PriLOSEC] 20 mg PO DAILY PRN 04/12/21 [History] Follow up Appointment(s)/Referral(s): Gabby Mckeon MD [STAFF PHYSICIAN] - 2 Weeks
--- NOTE | 2021-04-19 10:39 | P.PN ---
Progress Note - Text Progress Note Date: 04/19/21 The patient is POD #1, status post TVH with AP repair and Obtryx sling. Her Roca catheter was removed this morning. She is voiding small amounts, with a postvoid residual of 500 mL. She will be taught to self catheterize prior to discharge today, and follow up with me early next week. She is aware of the possible need for sling takedown should the retention persist.
[2021-04-19 14:19] VITALS: PULSE 62
== END 2021-04-19 14:24 | disposition home or self-care (01) ==
LOC: OR 05:47 → 6PED 12:23 → OR 04-19 14:24
PROVIDERS: ATTEND Obstetrics & Gynecology
DX: N39.46 Mixed incontinence (principal); N81.4 Uterovaginal prolapse, unspecified; D06.0 Carcinoma in situ of endocervix; N73.6 Female pelvic peritoneal adhesions (postinfective); J45.909 Unspecified asthma, uncomplicated; Z88.1 Allergy status to other antibiotic agents; Z88.0 Allergy status to penicillin; Z88.8 Allergy status to other drugs, medicaments and biological substances; F17.210 Nicotine dependence, cigarettes, uncomplicated
CPT/HCPCS: 58270; 57288; 81025; 88309; C1771; J2250; J1200 ×2; J1580; J1100 ×2; J2405; J3010; J1170; J1885; J0330; J2704; 86850; 86900; 86901

== ENCOUNTER 2022-05-01 14:10 | Emergency (ER) | payer BC ==
[2022-05-01 14:45] VITALS: RESP 18
[2022-05-01 15:25] LABS: Basophils % (A) 1 %; Eosinophils # (A) 0.1 k/uL (0-0.7); Eosinophils % (A) 2 %; HCT 44.7 % (34.0-46.0); HGB 14.7 gm/dL (11.4-16.0); Lymphocytes # (A) 1.9 k/uL (1.0-4.8); Lymphocytes % (A) 24 %; MCH 30.2 pg (25.0-35.0); MCV 91.5 fL (80.0-100.0); Mean Platelet Volume 8.9; Monocytes # (A) 0.4 k/uL (0-1.0); Monocytes % (A) 5 %; Neutrophils # (A) 5.2 k/uL (1.3-7.7); Neutrophils % (A) 67 %; Platelet Count 171 k/uL (150-450); RBC 4.88 m/uL (3.80-5.40); RDW 12.9 % (11.5-15.5); WBC 7.8 k/uL (3.8-10.6)
[2022-05-01 15:35] LABS: Partial Thromboplastin Time 23.9 sec (22.0-30.0); Prothrombin Time 10.6 sec (9.0-12.0)
[2022-05-01 15:38] LABS: African American GFR (CKD) >90 (>60 ml/min/1.73 sqM); Anion Gap 9 mmol/L; Blood Urea Nitrogen 14 mg/dL (7-17); Carbon Dioxide 23 mmol/L (22-30); Chloride 105 mmol/L (98-107); Glucose 100 mg/dL (74-99); Non-African American GFR(CKD) >90 (>60 ml/min/1.73 sqM); Potassium 3.9 mmol/L (3.5-5.1); Sodium 137 mmol/L (137-145)
--- NOTE | 2022-05-01 15:43 | ED ---
General Adult HPI - General Chief complaint: Neuro Symptoms/Deficit Stated complaint: Blurred Vison,L sided numbness Time Seen by Provider: 05/01/22 14:53 Source: patient, RN notes reviewed, old records reviewed Mode of arrival: ambulatory Limitations: no limitations - History of Present Illness Initial comments: Patient is a 42-year-old female with past medical history remarkable for anxiety, acid reflux, who presents emergency Department complaining of sudden onset of a small headache over the site of her head earlier today. She states she was looking at computer when summation blurred vision in both eyes as well as tingling sensation in her left arm and left foot. Specifically her left arm she states that was along the small fifth digit as well as on the second and third digit of the foot. She felt lightheaded at that time as well. She sat down and symptoms all resolved within 1 minute. This was at approximately 12:50 PM. States she is feeling improved at this time but is still complaining of some very mild paresthesias located over the small finger on her left hand. No other complaints at this time. Denies any weakness. Denies any current headaches. Denies any chest pain, shortness breath, abdominal pain, nausea, vomiting. Denies any current blurred vision. Denies any history of strokes. Has no history of brain aneurysms. Presents for further evaluation at this time. No trauma. No blood thinners.Overall states that currently she feels like her symptoms have completely resolved except for possible mild paresthesias in the left fifth digit. - Related Data Home Medications Medication Instructions Recorded Confirmed Cetirizine HCl [Zyrtec] 10 mg PO DAILY 04/12/21 05/01/22 Cholecalciferol (Vitamin D3) 150 mcg PO DAILY 05/01/22 05/01/22 [Vitamin D3 (3000 Iu)] calcium polycarbophiL [Fibercon] 625 mg PO DAILY 05/01/22 05/01/22 Allergies Allergy/AdvReac Type Severity Reaction Status Date / Time amoxicillin Allergy Rash/Hives Verified 05/01/22 15:52 cephalexin [From Keflex] Allergy Rash/Hives Verified 05/01/22 15:52 erythromycin base Allergy Rash/Hives Verified 05/01/22 15:52 insulin lispro [From Humalog] Allergy Rash/Hives Verified 05/01/22 15:52 levofloxacin [From Levaquin] Allergy Rash/Hives Verified 05/01/22 15:52 terbinafine [From Lamisil] Allergy Rash/Hives Verified 05/01/22 15:52 Milk Containing Products AdvReac Nausea & Verified 05/01/22 15:52 [Dairy] Vomiting & Diarrhea Review of Systems ROS Statement: Those systems with pertinent positive or pertinent negative responses have been documented in the HPI. Review of Systems: CONST: Denies fever EYES: Denies blurry vision ENT: Denies nasal congestion C/V: Denies Chest pain RESP: Denies shortness of breath GI: Denies abdominal pain : Denies dysuria SKIN: Denies rash. MSK: Denies joint pain. NEURO: Denies headache ROS Other: All systems not noted in ROS Statement are negative. Past Medical History Past Medical History: GERD/Reflux Additional Past Medical History / Comment(s): febrile seizure as infant, BP was "a little high"-no rx, IBS, "low iron", uterine/bladder prolapse History of Any Multi-Drug Resistant Organisms: None Reported Past Surgical History: Cholecystectomy, Orthopedic Surgery, Tubal Ligation Additional Past Surgical History / Comment(s): rt foot surgery x 2 to remove bone growth Past Anesthesia/Blood Transfusion Reactions: No Reported Reaction Past Psychological History: Anxiety Smoking Status: Current some day smoker Past Alcohol Use History: None Reported Past Drug Use History: None Reported - Past Family History Father Family Medical History: No Reported History Mother Family Medical History: No Reported History General Exam - General Exam Comments Initial Comments: General: Appears in no acute distress. HEAD: Normal with no signs of head trauma. EYES: PERRLA, EOMI, conjunctiva normal, no discharge. Pulses are 3 mm and equal bilaterally. ENT: Hearing grossly intact, normal oropharynx. RESPIRATORY: Clear breath sounds bilaterally. No wheezes, rales, or rhonchi. C/V: Regular rate and rhythm. S1 and S2 auscultated, no edema, peripheral pulses 2+ and intact throughout ABD: Abd is soft, nontender, nondistended EXT: Normal range of motion, no obvious deformity SKIN: No rashes or lesions observed on exposed skin. NEURO: Alert and oriented x 4. Cranial nerves II-XII intact. No focal sensory or strength deficits. The left fifth digit paresthesia is not really reproducible on exam. NIH is 0. GCS of 15. No focal deficits. Cerebellar function is intact as evident by normal finger to nose testing and apwr-nr-ldhb testing. Limitations: no limitations Course Vital Signs 05/01/22 05/01/22 05/01/22 14:40 17:14 17:17 Temperature 98.1 F 98.4 F Pulse Rate 73 64 67 Respiratory 18 18 18 Rate Blood Pressure 146/99 138/88 134/94 O2 Sat by Pulse 100 100 99 Oximetry Medical Decision Making - Medical Decision Making Based on the patient's presentation and physical exam, patient had some blurred vision as well as subjective paresthesias that have since resolved.NIH is 0. Did discuss with her possible CT imaging which she accepted. We'll also obtain basic labs. Otherwise vital signs are within normal limits and she has no acute complaints. Patient was in agreement this plan. Repeat CT showed no acute intracranial process. CT angiogram of the brain shows no acute intracranial process or stenosis. Laboratory findings are within normal limits. On reevaluation come patient remains asymptomatic. No acute complaints. I believe it is safer to be discharged home at this time. She was in agreement this plan. Strict return precautions were discussed. I instructed the patient to follow up with their PCP in the next 1-3 days. I explained that the patient should return to the emergency department if they experience any worsening symptoms. Strict return precautions were discussed with the patient. The patient expressed understanding of these instructions. I answered all questions that the patient had. The patient was discharged home in good condition with their prescriptions and follow up information. - Lab Data Result diagrams: 05/01/22 15:17 05/01/22 15:17 Lab Results 05/01/22 05/01/22 05/01/22 Range/Units 15:17 15:17 15:17 WBC 7.8 (3.8-10.6) k/uL RBC 4.88 (3.80-5.40) m/uL Hgb 14.7 (11.4-16.0) gm/dL Hct 44.7 (34.0-46.0) % MCV 91.5 (80.0-100.0) fL MCH 30.2 (25.0-35.0) pg MCHC 33.0 (31.0-37.0) g/dL RDW 12.9 (11.5-15.5) % Plt Count 171 (150-450) k/uL MPV 8.9 Neutrophils % 67 % Lymphocytes % 24 % Monocytes % 5 % Eosinophils % 2 % Basophils % 1 % Neutrophils # 5.2 (1.3-7.7) k/uL Lymphocytes # 1.9 (1.0-4.8) k/uL Monocytes # 0.4 (0-1.0) k/uL Eosinophils # 0.1 (0-0.7) k/uL Basophils # 0.0 (0-0.2) k/uL PT 10.6 (9.0-12.0) sec INR 1.0 (<1.2) APTT 23.9 (22.0-30.0) sec Sodium 137 (137-145) mmol/L Potassium 3.9 (3.5-5.1) mmol/L Chloride 105 (98-107) mmol/L Carbon Dioxide 23 (22-30) mmol/L Anion Gap 9 mmol/L BUN 14 (7-17) mg/dL Creatinine 0.63 (0.52-1.04) mg/dL Est GFR (CKD-EPI)AfAm >90 (>60 ml/min/1.73 sqM) Est GFR (CKD-EPI)NonAf >90 (>60 ml/min/1.73 sqM) Glucose 100 H (74-99) mg/dL Calcium 9.0 (8.4-10.2) mg/dL Magnesium 2.0 (1.6-2.3) mg/dL - EKG Data -: EKG Interpreted by Me EKG Comments: 12-lead Electrocardiogram Interpretation Note EKG was reviewed and interpreted by myself. 12-lead ECG performed at 1544 is interpreted by me as revealing normal sinus rhythm at a rate of 60 beats per minute. Cecil is normal. MO interval is 162 ms, QRS duration is 92 ms, QTc is 401 ms.. There were no acute ST or T wave abnormalities to suggest myocardial ischemia or injury. R wave progression across the precordium was satisfactory. By my interpretation this EKG is non-diagnostic for acute ischemia. Disposition Clinical Impression: Blurred vision Narrative: hand parasthesia, resolved Disposition: HOME SELF-CARE Condition: Good Instructions (If sedation given, give patient instructions): Blurred Vision (ED) Is patient prescribed a controlled substance at d/c from ED?: No Referrals: Aureliano Marquez MD [Primary Care Provider] - 1-2 days Time of Disposition: 16:30
--- NOTE | 2022-05-01 16:08 | CT ---
EXAMINATION TYPE: CT brain wo con DATE OF EXAM: 05/01/2022 COMPARISON: None. HISTORY: LT hand/foot paresthesias, resolved. Bilateral blurry vision CT DLP: 1133.6 mGycm. Automated Exposure Control for Dose Reduction was Utilized. TECHNIQUE: CT scan of the head is performed without contrast. FINDINGS: There is no acute intracranial hemorrhage, mass effect, or midline shift identified. The ventricles and sulci are within normal limits in size. Mckeon-white matter differentiation is maintain ed. Mild mucosal thickening involving the inferior maxillary sinuses bilaterally. Globes are intact b ilaterally. IMPRESSION: No acute intracranial hemorrhage, mass effect, or midline shift is seen.
--- NOTE | 2022-05-01 16:21 | CT ---
EXAMINATION TYPE: CT angio head neck CT DLP: 473.6 mGycm, Automated exposure control for dose reduction was used. DATE OF EXAM: 05/01/2022 4:06 PM COMPARISON: CT head 05/01/2022. CLINICAL INDICATION:Female, 42 years old with history of left hand/foot paresthesias, resolved; PHH, LT hand/foot paresthesias, resolved. Bilateral blurry vision TECHNIQUE: Axially acquired helical CT angiogram of the head and neck was obtained with contrast util izing 65 cc of Isovue-370 administered intravenously. Axial images are supplemented with 3D reconstru ctions which were post-processed at an independent workstation. NASCET criteria used. FINDINGS: CTA HEAD: No evidence of acute intracranial hemorrhage, mass effect, or midline shift. The ventricles, sulci, a nd cisterns are unremarkable. Mild mucosal thickening of the bilateral maxillary sinuses. Mastoid air cells are clear. The visualized portions of the internal carotid arteries, middle cerebral arteries, anterior cerebral arteries, and posterior cerebral arteries are patent. Posterior communicating arteries are hypoplast ic. The basilar and vertebral arteries are patent. Vertebral arteries are codominant. CTA NECK: Right Carotid System: The common carotid artery and external carotid artery are patent. The carotid bifurcation demonstrate s no evidence of hemodynamically significant stenosis. The remaining portions of the internal carotid artery demonstrate normal size without significant narrowing. Left Carotid System: The common carotid artery and external carotid artery are patent. The carotid bifurcation demonstrate s no evidence of hemodynamically significant stenosis. The remaining portions of the internal carotid artery demonstrate normal size without significant narrowing. Vertebral arteries are patent without evidence hemodynamically significant stenosis. Vertebral arteri es are codominant. There is a bovine aortic arch. The origins of the great vessels are patent. No evidence of hemodynami manuel significant stenosis. IMPRESSION: 1. No evidence of dissection of the cervical internal carotid arteries or vertebral arteries or any e vidence of significant stenosis at the carotid bifurcations. 2. No evidence of high-grade stenosis or intracranial aneurysm.
[2022-05-01 17:18] VITALS: BP 134/94; PULSE 67; TEMP 98.4
== END 2022-05-01 17:18 | disposition home or self-care (01) ==
LOC: EC 14:10
DX: H53.8 Other visual disturbances (principal); F17.200 Nicotine dependence, unspecified, uncomplicated; K21.9 Gastro-esophageal reflux disease without esophagitis; Z88.1 Allergy status to other antibiotic agents; Z88.6 Allergy status to analgesic agent; Z88.8 Allergy status to other drugs, medicaments and biological substances; Z91.011 Allergy to milk products; Z79.899 Other long term (current) drug therapy
CPT/HCPCS: 36415; 93005; 80048; 83735; 85025; 85610; 85730; 70496; 70450; 70498; 99284; Q9967

== ENCOUNTER → 2024-08-10 | Outpatient (CLI) | payer BC ==
[2024-08-10 16:48] VITALS: BP 134/84; PULSE 76; RESP 18; TEMP 97.9
--- NOTE | 2024-08-10 17:26 | P.SLEEP ---
History of Present Illness DATE: 08/10/2024 CONSULTATION/NEW PATIENT EVALUATION HISTORY OF PRESENT ILLNESS/SLEEP-WAKE EVALUATION: 44-year-old lady had been evaluated in the sleep center for possible obstructive sleep apnea hypopnea syndrome and excessive daytime sleepiness. SLEEP SCHEDULE: Usually sleep schedule from 1012 midnight until 6 AM on weekday s and until 78 AM on weekend. FALLING ASLEEP: Sometimes patient has difficulties with falling asleep, used to look at her phone in bedroom. DURING SLEEP: Patient sleeps on the back, side or stomach position with snoring and witnessed episodes of stop breathing during his sleep. Patient wakes up from sleep 3 times with nocturia, choking, dry mouth, grinding teeth, palpitations, heartburn, gasping for air and sweating. No history of hypnogogical hallucinations, sleep paralysis, or cataplexy. DURING THE DAY/WAKE STATE: In the morning patient wake up tired, has difficulties to pay attention, has problems with memory, concentration, irritability, anxiety.. [place] sleepiness scale is significantly increased to 13. Patient rarely takes naps. PAST MEDICAL HISTORY: Hypertension, allergy, acid reflux. PAST SURGICAL HISTORY: Partial hysterectomy, cholecystectomy, right foot surgery. MEDICATIONS: Losartan 50 mg once a day, Zyrtec 10 mg once a day. SOCIAL HISTORY: Please see below. FAMILY HISTORY: Please see below. REVIEW OF SYSTEMS: Snoring, multiple awakenings from sleep, sleepiness during the day. No fevers. No double vision. No recent chest pain. No shortness of breath. No abdominal pain. No bleeding episodes. No blood in urine. No seizure episodes. PHYSICAL EXAMINATION: GENERAL: A pleasant patient without any distress. VITAL SIGNS: Please see below, weight 170 pounds, BMI 30.8. HEENT: PERRLA, EOMI. Evaluation of oropharynx showed tongue protrudes midline, low position of soft palate Mallampati 23, short distance between soft palate and posterior pharyngeal wall. NECK: Supple. No JVD. Thyroid is not palpable. 14.5 inches in circumference. LUNGS: Clear to percussion and to auscultation. Good air exchange. No wheezing or rhonchi. HEART: S1, S2 regular. No murmurs, gallops or rubs. ABDOMEN: Soft and nontender. Bowel sounds are present. No organomegaly appreciated. EXTREMITIES: No clubbing or cyanosis. UNDERTAKER HELPER: Awake, alert, and oriented x3. Cranial nerves 2 to 7 intact. There is no fasciculation or atrophy noted. No focal deficits observed. ASSESSMENT: 1. Snoring, witnessed episodes of stop breathing during the sleep, multiple awakenings from sleep, small oropharyngeal airspace, sleepiness with increased [place] Sleepiness Scale. Obstructive sleep apnea hypopnea syndrome. 2. Sleepiness with [place] Sleepiness Scale increased to 13 dictates necessity to include hypersomnia and narcolepsy and differential diagnosis especially with questionable history of hypnagogic hallucinations. 3. Hypertension. 4. Allergy. 5 acid reflux. 6 . Sinuses problems. 7. Mild obesity, BMI 30.8. 8. Status post partial hysterectomy. 9 . Status post cholecystectomy. 10. Status post right foot surgery. PLAN: 1. Home sleep apnea test for evaluation of patient's breathing during sleep. 2. Following plan after reading home sleep apnea test. If sleep test will be negative for obstructive sleep apnea hypopnea syndrome we will consider multiple sleep latency test. 3. Preferable position during sleep on the side. 4. No driving if patient feels any sleepiness. Patient is aware of civil and criminal liability for unsafe driving. 5. Sleep hygiene with regular sleep time for at least 7.5-8 hours. 6. Watching and losing weight. Thank you very much for referring this patient for consultation. Sincerely, Yeyo Andres MD, PhD, FAASM. Diplomat of [place] [employer], Sleep Medicine Board by [place] [employer] [place] [employer] [facility] [place] cc: Pradeep Marquez MD Past Medical History Past Medical History: GERD/Reflux, Hypertension Additional Past Medical History / Comment(s): febrile seizure as , BP was "a little high"-no rx, IBS, "low iron", uterine/bladder prolapse, allergies (environmental and also a dairy sensitivity), gestational diabetes, ?snoring per daughter History of Any Multi-Drug Resistant Organisms: None Reported Past Surgical History: Cholecystectomy, Orthopedic Surgery, Tubal Ligation Additional Past Surgical History / Comment(s): rt foot surgery x 2 to remove bone growth, hysterectomy, urethra surgery also done during hysterectomy Past Anesthesia/Blood Transfusion Reactions: No Reported Reaction Past Psychological History: Anxiety Smoking Status: Current some day smoker Past Alcohol Use History: Occasional Additional Past Alcohol Use History / Comment(s): smokes up to 1/2 PPD, has smoked on and off since age 17 Past Drug Use History: None Reported - Past Family History Father Family Medical History: No Reported History Mother Family Medical History: No Reported History Additional Family Medical History / Comment(s): Sinus headaches, insomnia, diabetes (not on medication at this time). Grandparents hx: heart problems, high cholesterol, arthritis, aunt with epilepsy and grandma with breast cancer.) Patient does not know her biological dad history. Medications and Allergies Home Medications Medication Instructions Recorded Confirmed Type Cetirizine HCl [Zyrtec] 10 mg PO DAILY 04/12/21 08/10/24 History Cholecalciferol (Vitamin D3) 150 mcg PO DAILY 05/01/22 05/01/22 History [Vitamin D3 (3000 Iu)] calcium polycarbophiL [Fibercon] 625 mg PO DAILY 05/01/22 05/01/22 History Losartan [Cozaar] 50 mg PO DAILY 08/10/24 08/10/24 History Allergies Allergy/AdvReac Type Severity Reaction Status Date / Time amoxicillin Allergy Rash/Hives Verified 05/01/22 15:52 cephalexin [From Keflex] Allergy Rash/Hives Verified 05/01/22 15:52 erythromycin base Allergy Rash/Hives Verified 05/01/22 15:52 insulin lispro [From Humalog] Allergy Rash/Hives Verified 05/01/22 15:52 levofloxacin [From Levaquin] Allergy Rash/Hives Verified 05/01/22 15:52 terbinafine [From Lamisil] Allergy Rash/Hives Verified 05/01/22 15:52 Milk Containing Products AdvReac Nausea & Verified 05/01/22 15:52 (Dairy) Vomiting & [Dairy] Diarrhea Physical Exam Vitals: Vital Signs Temp Pulse Resp BP Pulse Ox 08/10/24 16:46 97.9 F 76 18 134/84 98 Intake and Output 08/10/24 08/10/24 08/10/24 06:59 14:59 22:59 Other: Weight 77.111 kg Sleep Note - Sleep Data ESS Total: 13 - Sleep Note Sleep Note: Temperature: 97.9 F Pulse Rate: 76 Respiratory Rate: 18 Blood Pressure: 134/84 SpO2: 98 Height: 5 ft 2.2 in Weight: 77.111 kg BMI: Neck Circumference: 14.5
== END ==
LOC: 3 N SLEEP 16:13
PROVIDERS: ATTEND Internal Medicine
DX: G47.33 Obstructive sleep apnea (adult) (pediatric) (principal); I10 Essential (primary) hypertension; K21.9 Gastro-esophageal reflux disease without esophagitis; F17.210 Nicotine dependence, cigarettes, uncomplicated; J34.89 Other specified disorders of nose and nasal sinuses; Z90.711 Acquired absence of uterus with remaining cervical stump; Z90.49 Acquired absence of other specified parts of digestive tract; Z98.890 Other specified postprocedural states; Z68.30 Body mass index [BMI] 30.0-30.9, adult; Z79.899 Other long term (current) drug therapy; Z88.1 Allergy status to other antibiotic agents; Z88.8 Allergy status to other drugs, medicaments and biological substances; Z91.011 Allergy to milk products
CPT/HCPCS: 99211

== ENCOUNTER → 2024-08-16 | Outpatient (CLI) | payer BC ==
--- NOTE | 2024-08-17 10:16 | P.PCN ---
Description of Procedure: CLINICAL: A home sleep apnea test has been done for confirmation of possible obstructive sleep apnea-hypopnea syndrome. DESCRIPTION OF PROCEDURE: RESULTS: Recording time was 8 hours 9 minutes. Evaluation time was 7 hours 57 minutes. Evaluation time is sufficient for making conclusion about results of the test. Raw data of sleep recording has been reviewed and is adequate. Respiratory channel showed 0 apneas and 8 hypopneas. Apnea-hypopnea index was 1.0 per hour. Pulse rate in the range between minimum 50, maximum 108, average 70 by computer calculation. Lowest desaturation was 89%. IMPRESSION: 1. No significant respiratory abnormalities given documented during home sleep apnea test. 2. Patient presents with symptoms of significant excessive daytime sleepiness, differential diagnosis include hypersomnia and narcolepsy. Please see other impressions from consultation. PLAN: 1. Multiple sleep latency test for objective evaluation symptoms of excessive daytime sleepiness. 2. I will see patient for follow up visit to discuss results of the test, evaluate clinical response on treatment with PAP therapy and make any necessary adjustments related to mask fitting, pressure, and humidification. 3. Watching weight. 4. Sleep hygiene with regular time in bed for at least 8 hours. 5. No driving if feeling any sleepiness. Thank you very much for allowing me to participate in the management of your patient. Sincerely, Yeyo Andres MD, PhD, FAASM Diplomat of [place] [employer] Sleep Medicine Board of [place] [employer] [place] [employer] [facility] [place] cc: Pradeep Marquez MD
== END ==
LOC: 3 N SLEEP 17:01
PROVIDERS: ATTEND Internal Medicine
DX: G47.33 Obstructive sleep apnea (adult) (pediatric) (principal); I10 Essential (primary) hypertension; R44.3 Hallucinations, unspecified; G47.00 Insomnia, unspecified; F17.200 Nicotine dependence, unspecified, uncomplicated; Z88.0 Allergy status to penicillin; Z88.1 Allergy status to other antibiotic agents; Z88.8 Allergy status to other drugs, medicaments and biological substances; Z91.011 Allergy to milk products; Z79.899 Other long term (current) drug therapy

== ENCOUNTER → 2024-12-19 | Outpatient (CLI) | payer BC ==
--- NOTE | 2024-12-26 08:41 | MM ---
Reason for Exam: Screening (asymptomatic). Last mammogram was performed 1 year(s) and 7 month(s) ago. Patient History: Menarche at age 11. First Full-Term at age 26. Hysterectomy at age 41. Maternal grandmother had breast cancer, age 86. Maternal aunt had breast cancer, age 40. Last menstrual period: Risk Values: Moon 5 year model risk: 0.9%. NCI Lifetime model risk: 11.7%. Prior Study Comparison: 05/04/2019 Bilateral Screening Mammogram, [facility]. 05/15/2023 Bilateral Screening Mammogram, [facility]. Tissue Density: The breasts are heterogeneously dense, which may obscure small masses. Findings: Analyzed By CAD. There is no suspicious group of microcalcifications or new suspicious mass in either breast. Overall Assessment: Negative, BI-RAD 1 Management: Screening Mammogram of both breasts in 1 year. . Patient should continue monthly self-breast exams. A clinical breast exam by your physician is recommended on an annual basis. This exam should not preclude additional follow-up of suspicious palpable abnormalities. Note on Moon scores and lifetime risk: 1. A Moon score greater than 3% is considered moderate risk. If this is the case, consider specialist referral to assess eligibility for a risk reducing agent. 2. If overall lifetime risk for the development of breast cancer is 20% or higher, the patient may qualify for future screening with alternating mammogram and breast MRI. [facility], , 12/26/2024 8:37 AM. Electronically signed and approved by: Juan Carlos Sy M.D. Radiolog[facility]
== END | disposition home or self-care (01) ==
LOC: RADMAMWWP 09:44
PROVIDERS: ATTEND Family Medicine
DX: Z12.31 Encounter for screening mammogram for malignant neoplasm of breast (principal); R92.333 Mammographic heterogeneous density, bilateral breasts; Z80.3 Family history of malignant neoplasm of breast
CPT/HCPCS: 77063; 77067